=== PATIENT | male | born 1955 ===

== ENCOUNTER → 2018-08-24 | Outpatient (REF) ==
--- NOTE | 2018-08-24 12:41 | Diagnostic Imaging Report ---
INDICATION: Smashed left third finger. TIME OF EXAM: 12:48 PM FINDINGS: 3 views of the left hand demonstrate the metacarpals and phalanges to be intact. No fractures are seen. Soft tissues are without radiopaque foreign body. IMPRESSION: No acute abnormality is detected. Dictated by: Dictated on workstation # [id number]
== END | disposition home or self-care (01) ==
LOC: RAD 12:09
PROVIDERS: ATTEND Family Medicine
CPT/HCPCS: 73130